=== PATIENT | female | born 1990 | race African-American/Black ===

== ENCOUNTER 2021-02-10 17:11 | Emergency (ER) | payer OTHER ==
[2021-02-10 17:18] VITALS: BP 105/70; PULSE 82; TEMP 97; BMI 21.9
[2021-02-10] MEDS ORDERED: AZITHROMYCIN 500 MG TABLET PO ONE (18:35)
[2021-02-10] MEDS ORDERED: AZITHROMYCIN 500 MG TABLET ONE (18:39)
[2021-02-10] MEDS ORDERED: ONDANSETRON *ODT* 4 MG TABLET SL ONE (18:39)
== END 2021-02-10 18:57 | disposition home or self-care (01) ==
LOC: JERFT 17:11
PROC: 3E023GC Introduction of Other Therapeutic Substance into Muscle, Percutaneous Approach (ICD-10-PCS; principal; 2021-02-10)
DX: N72 Inflammatory disease of cervix uteri (principal)
CPT/HCPCS: 36415; 87491; 87591; 99284-25

== ENCOUNTER 2022-08-29 00:50 | Emergency (ER) | payer OTHER ==
[2022-08-29 00:59] VITALS: BP 122/79; PULSE 81; RESP 16; TEMP 98.6; BMI 21.6
[2022-08-29] MEDS ORDERED: IBUPROFEN 400 MG TABLET (FP) PO ONE ×2 (01:35→01:45)
[2022-08-29] MEDS ORDERED: LORATADINE 10 MG TABLET PO ONE (01:35)
[2022-08-29] MEDS ORDERED: ALBUTEROL SO4 0.083% IH SOL 2.5 MG/3 ML VIAL.NEB. NEB ONE ×2 (01:35→01:45)
[2022-08-29] MEDS ORDERED: LORATADINE 10 MG TABLET ONE (01:45)
== END 2022-08-29 03:32 | disposition home or self-care (01) ==
LOC: JER 00:50
PROC: 3E0F7GC Introduction of Other Therapeutic Substance into Respiratory Tract, Via Natural or Artificial Opening (ICD-10-PCS; principal; 2022-08-29)
DX: R05.1 Acute cough (principal)
CPT/HCPCS: 0241U-QW; 99283-25

== ENCOUNTER 2023-05-25 06:00 | Inpatient (IN) | payer OTHER ==
[2023-05-25] MEDS ORDERED: ELECTROLYTE-148 SOLN 1,000 ML IV SCH ×2 (06:30→09:30)
[2023-05-25 07:46] LABS: BASO % 0.3 % (0-2.0); EOS % 0.8 % (0-4.5); HEMATOCRIT 34.1 % (32.4-45.2); HEMOGLOBIN 11.3 GM/dL (10.7-15.3); LYMPH % 22.5 % (8-40); MCH 31.5 pg (25.7-33.7); MCHC 33.1 g/dl (32.0-36.0); MEAN CELL VOLUME 95.1 fl (80-96); MEAN PLT VOLUME 9.8 fl (7.5-11.1); MONO % 5.4 % (3.8-10.2); PLATELET COUNT 143 10^3/uL (134-434); RBC 3.59 M/mm3 (3.60-5.2); RDW 13.4 % (11.6-15.6); WHITE BLOOD COUNT 10.8 K/mm3 (4.0-10.0)
[2023-05-25 07:56] LABS: INR 1.03 (0.83-1.09); PROTHROMBIN TIME (PATIENT) 11.9 SEC (9.7-13.0)
[2023-05-25 07:59] LABS: ACTIVATED PTT 26.5 SECONDS (25.2-36.5)
[2023-05-25] MEDS ORDERED: OXYTOCIN 20 UNITS in 0.9% NS 20 UNIT/1,000 ML INFUS.BAG IV ONE (08:21)
[2023-05-25 08:25] LABS: POTASSIUM 3.6 mmol/L (3.5-5.1)
[2023-05-25 08:26] LABS: CALCIUM 8.9 mg/dL (8.5-10.1)
[2023-05-25 08:27] LABS: BLOOD UREA NITROGEN 12.7 mg/dL (7-18)
[2023-05-25] MEDS ORDERED: LIDOCAINE HCL 1% PRESERVATIVE FREE - 30ML VIAL ONE (08:28)
[2023-05-25 08:30] LABS: CREATININE 0.7 mg/dL (0.55-1.3)
[2023-05-25 09:17] LABS: CORD BASE EXCESS -1.4 mmol/L (0-2); CORD HCO3 26.1 mmHg (20-29); CORD HCO3 27.6 mmHg (20-29); CORD PCO2 54.3 mmHg (30-78); CORD PCO2 64.6 mmHg (30-78); CORD pH 7.249 (7.14-7.44); CORD pH 7.3 (7.14-7.44)
[2023-05-25] MEDS ORDERED: BENZOCAINE 20% 57 GM BOTTLE TP PRN (09:37)
[2023-05-25] MEDS ORDERED: METHYLERGONOVINE MALEATE 0.2 MG/1 ML AMP IM PRN (09:37)
[2023-05-25] MEDS ORDERED: BISACODYL 10 MG SUPP.RECT RC PRN (09:37)
[2023-05-25] MEDS ORDERED: oxyCODONE HCL 5 MG TABLET PO PRN (09:37)
[2023-05-25] MEDS ORDERED: WITCH HAZEL 50% (TUCKS) 40 PAD/JAR PAD TP PRN (09:37)
[2023-05-25] MEDS ORDERED: BENZOCAINE 28 GM HEMORRHOIDAL OINTMENT TP PRN (09:37)
[2023-05-25 09:44] LABS: POC NITRAZINE POS
[2023-05-25] MEDS ORDERED: OXYTOCIN 20 UNITS in 0.9% NS 20 UNIT/1,000 ML INFUS.BAG IV SCH (09:45)
[2023-05-25] MEDS: IBUPROFEN 600 MG TABLET (FP) PO PRN ×3 (09:45→20:18)
[2023-05-25] MEDS ORDERED: OXYTOCIN 10 UNITS/ML VIAL IM ONE (10:15)
[2023-05-25] MEDS ORDERED: ACETAMINOPHEN 325 MG TABLET (FP) ONE (10:31)
[2023-05-25] MEDS ORDERED: OXYTOCIN 10 UNITS/ML VIAL ONE (10:31)
[2023-05-25] MEDS: ACETAMINOPHEN 325 MG TABLET (FP) PO PRN ×2 (10:35→18:09)
[2023-05-25] MEDS: PRENATAL VITAMINS W/ FOLIC ACID TABLET (FP) PO SCH (13:16)
[2023-05-26] MEDS: IBUPROFEN 600 MG TABLET (FP) PO PRN (02:10)
[2023-05-26 08:06] LABS: BASO % 0.5 % (0-2.0); EOS % 0.8 % (0-4.5); HEMATOCRIT 28.8 % (32.4-45.2); HEMOGLOBIN 9.9 GM/dL (10.7-15.3); LYMPH % 15.7 % (8-40); MCH 32.9 pg (25.7-33.7); MCHC 34.4 g/dl (32.0-36.0); MEAN CELL VOLUME 95.5 fl (80-96); MEAN PLT VOLUME 10.3 fl (7.5-11.1); MONO % 4.7 % (3.8-10.2); NEUT % 78.3 % (42.8-82.8); PLATELET COUNT 132 10^3/uL (134-434); RBC 3.02 M/mm3 (3.60-5.2); RDW 13.2 % (11.6-15.6); WHITE BLOOD COUNT 12.5 K/mm3 (4.0-10.0)
[2023-05-26] MEDS: PRENATAL VITAMINS W/ FOLIC ACID TABLET (FP) PO SCH (10:58)
[2023-05-26] MEDS ORDERED: SENNOSIDES/DOCUSATE COMBO (SENNA PLUS) TABLET (UD) PO PRN (22:00)
[2023-05-27] MEDS: IBUPROFEN 600 MG TABLET (FP) PO PRN (06:53)
[2023-05-27 08:41] VITALS: BP 133/71; PULSE 54; RESP 17; TEMP 98.2
[2023-05-27] MEDS: PRENATAL VITAMINS W/ FOLIC ACID TABLET (FP) PO SCH (10:58)
== END 2023-05-27 12:45 | disposition home or self-care (01) | DRG 560 ==
LOC: JLDR 06:00 → J3W 11:28
PROVIDERS: ADMIT Obstetrics & Gynecology; ATTEND Obstetrics & Gynecology
PROC: 10E0XZZ Delivery of Products of Conception, External Approach (ICD-10-PCS; principal; 2023-05-25)
DX: O80 Encounter for full-term uncomplicated delivery (principal); Z3A.38 38 weeks gestation of pregnancy; Z37.0 Single live birth
CPT/HCPCS: 36415; 36600; 80048; 82803; 83986-QW; 85025; 85461; 85610; 85730; 86780; 86850; 86870; 86880; 86900; 86901; 86902; 96372; J2790